=== PATIENT | female | born 2000 | race Caucasian/White ===

== ENCOUNTER 2022-11-22 09:07 | Emergency (ER) | payer OTHER ==
--- NOTE | 2022-11-22 09:23 | ERPHSYRPT ---
- History of Present Illness Time Seen by Provider: 11/22/22 09:19 Source: patient Exam Limitations: no limitations Patient Subjective Stated Complaint: Pt states "I was putting the culture needle into the sharps and my finger slipped into the needle area and I got stuck." Triage Nursing Assessment: Pt presented alert and oriented X 3, skin pwd. Pt ambulates with an upright steady gait, able to speak in clear full sentences. PT has small puncture site noted to index finger of left hand. 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 Needlestick on left index finger patient desires to have a work-up performed. Patient is breast- feeding at this time Quality: painful Severity: mild Location: hands (Left index finger) Possible Causes: other (Needlestick at) Associated Symptoms: denies symptoms Allergies/Adverse Reactions: latex Allergy (Intermediate, Verified 11/22/22 09:16) Rash Home Medications: Fluoxetine HCl 20 mg [Prozac 20 MG] 20 mg PO DAILY 11/22/22 [History] Hx Tetanus, Diphtheria Vaccination/Date Given: Yes Hx Influenza Vaccination/Date Given: No Hx Pneumococcal Vaccination/Date Given: No Immunizations Up to Date: Yes Travel Risk - International Travel Have you traveled outside of the country in past 3 weeks: No - Coronavirus Screening Are you exhibiting any of the following symptoms?: No Close contact with a COVID-19 positive Pt in past 14-21 Days: No - Vaccine Status Have you recieved a Covid-19 vaccination: Yes Educational Assistant Teacher: [email or web address] - Vaccination Dates Date of 2cond Vaccination (if applicable): 2020 - Review of Systems Constitutional: No Symptoms Eyes: No Symptoms Ears, Nose, & Throat: No Symptoms Respiratory: No Symptoms Cardiac: No Symptoms Abdominal/Gastrointestinal: No Symptoms Genitourinary Symptoms: No Symptoms Musculoskeletal: No Symptoms Skin: No Symptoms Neurological: No Symptoms Psychological: No Symptoms Endocrine: No Symptoms Hematologic/Lymphatic: No Symptoms Immunological/Allergic: No Symptoms All Other Systems: Reviewed and Negative - Past Medical History Pertinent Past Medical History: Yes Psycho-Social History: Anxiety - Past Surgical History Past Surgical History: Yes Other Surgical History: c section x 2. odalys. mouth. endoscopy - Social History Smoking Status: Never smoker Exposure to second hand smoke: Yes Drug Use: none Patient Lives Alone: No - Female History Hx Last Menstrual Period: 11/2021 Hx Now: No - Nursing Vital Signs Nursing Vital Signs: Initial Vital Signs Temperature 98.2 F 11/22/22 09:11 Pulse Rate 83 11/22/22 09:11 Respiratory Rate 20 11/22/22 09:11 Blood Pressure 137/78 11/22/22 09:11 O2 Sat by Pulse Oximetry 97 11/22/22 09:11 Pain Scale Pain Intensity 0 - Physical Exam General Appearance: no apparent distress, alert, anxiety Eye Exam: PERRL/EOMI, eyes nml inspection Ears, Nose, Throat Exam: normal ENT inspection Neck Exam: normal inspection, non-tender, supple, full range of motion Respiratory Exam: airway intact, No chest tenderness, No respiratory distress Gastrointestinal/Abdomen Exam: No tenderness Pelvic Exam: not done Rectal Exam: not done Back Exam: normal inspection, normal range of motion, No CVA tenderness, No vertebral tenderness Extremity Exam: normal inspection, normal range of motion, pelvis stable Neurologic Exam: alert, oriented x 3, cooperative, [place]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 No bleeding.) Lymphatic Exam: No adenopathy SpO2 Interpretation: normal SpO2: 97 O2 Delivery: Room Air - Course Nursing assessment & vital signs reviewed: Yes Ordered Tests: Active Orders 24 hr Category Date Time Status Wound Care STAT Care 11/22/22 09:23 Active - Progress Progress: unchanged Progress Note: 11/22/22 09:21 This patient's medical issue is 1 of low complexity. This is based on patient's past medical history, review of the patient's medication list, review of the patient's drug allergy list, history of present illness and physical finds on examination. 11/22/22 09:45 I discussed with this patient the risks benefits of the prophylactic medication for HIV and hepatitis protection. Patient is going to decide whether she wants to continue breast-feeding or not. She will also decide based on our discussion, whether or not she wants to take the medication at all. Counseled pt/family regarding: lab results, diagnosis, need for follow-up Medical Desision Making - Diagnostic Testing Diagnostic test were ordered, analyzed, and reviewed by me: No - Risk of complications Minimal Risk: Minimal risk of morbidity - Departure Departure Disposition: Home Clinical Impression: Needlestick injury accident Condition: Stable Critical Care Time: No Additional Instructions: Keep needlestick puncture wound clean daily with soap and water. Cover with Band-Aid. Follow-up with your primary care provider for further evaluation management.
[2022-11-22 09:56] VITALS: BP 132/80; PULSE 88; O2SAT 98
[2022-11-24 09:03] LABS: HIV Screen 4th Generation wRfx Non Reactive (Non Reactive)
[2022-11-24 10:41] LABS: HBsAg Screen Negative (Negative); Hep B Surface Ab, Quant 35.5 mIU/mL (Immunity>9.9); Hep C Virus Ab Non Reactive (Non Reactive)
== END 2022-11-22 10:26 | disposition home or self-care (01) ==
LOC: ED 09:07
DX: S61.231A Puncture wound without foreign body of left index finger without damage to nail, initial encounter (principal); W46.1XXA Contact with contaminated hypodermic needle, initial encounter; Y92.238 Other place in hospital as the place of occurrence of the external cause; Y99.0 Civilian activity done for income or pay; Z79.899 Other long term (current) drug therapy
CPT/HCPCS: 36415; 86317; 87340; 87389; 99282; G0472; 86803